=== PATIENT | male | born 1975 | race Caucasian/White ===

== ENCOUNTER 2018-02-19 11:05 | Emergency (ER) | payer BC, MEDICAID ==
[2018-02-19 11:37] LABS: BASO # 0.2 K/uL (0.0-0.2); BASO % 1.5 % (0.0-2.0); EOS # 0.1 K/uL (0.0-0.7); EOS % 1.4 % (0.0-4.0); HEMOGLOBIN 15.6 g/dL (12.0-18.0); LYMPH # 1.9 K/uL (1.0-4.3); MEAN CELL VOLUME 84.8 fL (80.0-94.0); MEAN CORPUSCULAR HEMOGLOBIN 28.4 pg (27.0-31.0); MEAN CORPUSCULAR HGB CONC 33.5 g/dL (33.0-37.0); MEAN PLATELET VOLUME 9.1 fL (7.2-11.7); MONO % 9.6 % (0.0-10.0); NEUT # 7.5 K/uL (1.8-7.0); NEUT % 69.5 % (50.0-75.0); NRBC % 0.1 % (0.0-2.0); RBC 5.5 Mil/uL (4.40-5.90); RED CELL DISTRIBUTION WIDTH 13.4 % (11.5-14.5); WHITE BLOOD COUNT 10.8 K/uL (4.8-10.8)
[2018-02-19 11:50] LABS: ALB/GLOB RATIO 1.3 (1.0-2.1); ALBUMIN 4.2 g/dL (3.5-5.0); ALT/SGPT 28 U/L (21-72); AST/SGOT 25 U/L (17-59); BLOOD UREA NITROGEN 17 mg/dL (9-20); GFR NON-AFRICAN AMERICAN > 60
[2018-02-19 12:02] LABS: CK-MB 1.42 ng/mL (0.0-3.38)
--- NOTE | 2018-02-19 12:27 | CT ---
Date of service: 02/19/2018 PROCEDURE: CT HEAD WITHOUT CONTRAST. HISTORY: HEADACHE (RIGHT), DIZZINESS, BLURRY VISION (b/l) COMPARISON: None available. TECHNIQUE: Axial computed tomography images were obtained through the head/brain without intravenous contrast. Radiation dose: Total exam DLP = 1187.12 mGy-cm. This CT exam was performed using one or more of the following dose reduction techniques: Automated exposure control, adjustment of the mA and/or kV according to patient size, and/or use of iterative reconstruction technique. FINDINGS: HEMORRHAGE: No intracranial hemorrhage. BRAIN: No mass effect or edema. No atrophy or chronic microvascular ischemic changes. VENTRICLES: No hydrocephalus. CALVARIUM: Unremarkable. PARANASAL SINUSES: Unremarkable as visualized. No significant inflammatory changes. MASTOID AIR CELLS: Unremarkable as visualized. No inflammatory changes. OTHER FINDINGS: None. IMPRESSION: No acute intracranial pathology identified.
--- NOTE | 2018-02-19 12:42 | C.PDOC ---
History Of Present Illness 43 year old male with PMHx of HTN presents to the ED complaining of right sided headache, light headedness, bilateral eye pressure and blurry vision when ready for one day. Admits he ran out of Lisinopril three days ago. Denies any facial droop, blurred speech, extremity weakness, sensory or gait changes, chest pain, shortness of breath, or palpitations. Time Seen by Provider: 02/19/18 11:11 Chief Complaint (Nursing): Dizziness/Lightheaded History Per: Patient History/Exam Limitations: no limitations Onset/Duration Of Symptoms: Days (1) Current Symptoms Are (Timing): Still Present Fall Associated With With Symptoms: No Past Medical History Reviewed: Historical Data, Nursing Documentation, Vital Signs Vital Signs: Last Vital Signs Temp Pulse 60 02/19/18 12:11 Resp 18 02/19/18 12:11 BP 144/90 02/19/18 12:11 Pulse Ox 96 02/19/18 12:11 - Medical History PMH: Asthma, HTN, Hypercholesterolemia Surgical History: No Surg Hx Family History: States: No Known Family Hx - Social History Hx Alcohol Use: No Hx Substance Use: No - Immunization History Hx Tetanus Toxoid Vaccination: Yes Hx Influenza Vaccination: No Hx Pneumococcal Vaccination: Yes (last year) Review Of Systems Constitutional: Negative for: Fever, Chills Eyes: Positive for: Vision Change (blurry vision ), Other (b/l eye pressure ) Cardiovascular: Positive for: Light Headedness. Negative for: Chest Pain, Palpitations Neurological: Positive for: Headache (right sided ). Negative for: Weakness, Numbness, Other (slurred speech, facial droop ) Physical Exam - Physical Exam Appears: Non-toxic, No Acute Distress Skin: Warm, Dry, No Rash Head: Normacephalic Eye(s): bilateral: Normal Inspection, PERRL, EOMI Ear(s): Bilateral: Normal Nose: Normal Oral Mucosa: Moist Neck: Supple Chest: Symmetrical Cardiovascular: Rhythm Regular Respiratory: Normal Breath Sounds, No Rales, No Rhonchi, No Wheezing Gastrointestinal/Abdominal: Soft, No Tenderness Extremity: Bilateral: Atraumatic, Normal Color And Temperature, Normal ROM Neurological/Psych: Oriented x3, Normal Speech Gait: Steady ED Course And Treatment - Laboratory Results Result Diagrams: 02/19/18 11:34 02/19/18 11:34 ECG: Interpreted By Me, Viewed By Me ECG Rhythm: Sinus Rhythm Interpretation Of ECG: Left axis deviation. Q waves in III and aVF. No acute ST/T wave changes Rate From EC O2 Sat by Pulse Oximetry: 96 (RA) Pulse Ox Interpretation: Normal - CT Scan/US CT head Other Rad Studies (CT/US): Read By Radiologist, Radiology Report Reviewed CT/US Interpretation: Accession No. : [id number]. Patient Name / ID : EVELYN CASTELLANOS / [id number]. Exam Date : 02/19/2018 11:58:25 ( Approved ). Study Comment : Sex / Age : M / 43Y. Creator : Nevin Busby. Dictator : Chiquis Batista MD. Molten Iron Pourer : Rn Bone Marrow Transplant : Chiquis Batista MD. Approver2 : Report Date : 02/19/2018 12:13:00. My Comment : . Date of service: 02/19/2018. PROCEDURE: CT HEAD WITHOUT CONTRAST. HISTORY: HEADACHE (RIGHT), DIZZINESS, BLURRY VISION (b/l). COMPARISON: None available. TECHNIQUE: Axial computed tomography images were obtained through the head/brain without intravenous contrast. Radiation dose: Total exam DLP = 1187.12 mGy-cm. This CT exam was performed using one or more of the following dose reduction techniques: Automated exposure control, adjustment of the mA and/or kV according to patient size, and/or use of iterative reconstruction technique. FINDINGS: HEMORRHAGE: No intracranial hemorrhage. BRAIN: No mass effect or edema. No atrophy or chronic microvascular ischemic changes. VENTRICLES: No hydrocephalus. CALVARIUM: Unremarkable. PARANASAL SINUSES: Unremarkable as visualized. No significant inflammatory changes. MASTOID AIR CELLS: Unremarkable as visualized. No inflammatory changes. OTHER FINDINGS: None. IMPRESSION: No acute intracranial pathology identified. Progress Note: Patient treated with Tylenol and Lisinopril.Bloodwork ordered and reviewed. EKG and CT head scan ordered and reviewed. Disposition Counseled Patient/Family Regarding: Diagnosis, Need For Followup, Rx Given - Disposition Referrals: [facility] [Outside] Disposition: HOME/ ROUTINE Disposition Time: 13:15 Condition: STABLE Additional Instructions: FOLLOW UP WITH YOUR DOCTOR/CLINIC 1-2 DAYS USE MEDICATION DIRECTED RETURN TO ER IF SYMPTOMS WORSEN Prescriptions: Lisinopril [Zestril] 5 mg PO DAILY #30 tab Instructions: High Blood Pressure (DC), Headache, Adult (DC) Forms: [employer] (Arabic) Print Language: HEBREW - Clinical Impression Clinical Impression: Hypertension, Headache - Scribe Statement The provider has reviewed the documentation as recorded by the Scribe Bruna Retana All medical record entries made by the Lalitoibindira were at my direction and personally dictated by me. I have reviewed the chart and agree that the record accurately reflects my personal performance of the history, physical exam, medical decision making, and the department course for this patient. I have also personally directed, reviewed, and agree with the discharge instructions and disposition.
[2018-02-19 13:08] VITALS: BP 137/79; PULSE 67; RESP 17; TEMP 97.9
[2018-02-19 13:16] VITALS: O2SAT 96
--- NOTE | 2018-02-20 12:28 | CARD ---
APPROVED REPORT Date of service: 02/19/2018 EKG Measurement Heart [id number] OR [id number] <Conclusion> Normal sinus rhythm Left axis deviation Inferior infarct, age undetermined Abnormal ECG
== END 2018-02-19 13:31 | disposition home or self-care (01) ==
LOC: C.ER 11:05
DX: I10 Essential (primary) hypertension (principal); R51 Headache; E78.00 Pure hypercholesterolemia, unspecified; Z87.891 Personal history of nicotine dependence